=== PATIENT | male | born 1960 | race Caucasian/White ===

== ENCOUNTER 2017-02-26 19:20 | Inpatient (IN) | payer MEDICAID ==
[~2017-02-26] VITALS: Ht 167.6 cm; Wt 90.0 kg
[~2017-02-26 19:20] MED LIST: BUSP10TA11 PO; CITA40TA22 PO; IBUP-1985 PO; METO25TA6 PO; QUET50TA PO; QUET50TA15 PO; ROSU5TAB PO; TRAZ150T78 PO
[2017-02-26] MEDS ORDERED: mupirocin 2% ointment 22GM TP STA (19:49)
[2017-02-26] MEDS ORDERED: LORazepam 2 mg/ml vial IV ONE ×2 (20:45→22:55)
[2017-02-26] MEDS ORDERED: normal saline 1000ML IV soln IVB ONE ×2 (20:45→22:55)
[2017-02-26 20:48] LABS: BASOPHILS % (AUTO) 0.2 % (0-1); EOSINOPHILS % (AUTO) 0.1 % (0-6); HEMATOCRIT 42.8 % (42.0-52.0); HEMOGLOBIN 14.5 g/dl (14.0-17.9); LYMPHOCYTES # (AUTO) 1.9 X10'3 (1.1-4.8); LYMPHOCYTES % (AUTO) 24.7 % (21-51); MEAN CORPUSCULAR HEMOGLOBIN 31.6 PG (27.0-31.0); MEAN CORPUSCULAR HGB CONC 33.8 % (33.0-36.5); MEAN CORPUSCULAR VOLUME 93.6 FL (78-98); MEAN PLATELET VOLUME 8.1 FL (7.4-10.4); MONOCYTES % (AUTO) 0.4 % (2-12); NEUTROPHILS # (AUTO) 5.8 X10'3 (1.8-7.7); NEUTROPHILS % (AUTO) 74.6 % (42-75); PLATELET COUNT 221 X10'3 (140-440); RED BLOOD COUNT 4.57 X10'6 (4.70-6.10); RED CELL DISTRIBUTION WIDTH 13.3 % (11.5-14.5); WHITE BLOOD COUNT 7.7 X10'3 (4.5-11.0)
[2017-02-26 21:03] LABS: ALANINE AMINOTRANSFERASE 37 U/L (12-78); ALBUMIN 4.2 G/DL (3.4-5.0); ALBUMIN/GLOBULIN RATIO 1.2 (1.1-1.5); ALKALINE PHOSPHATASE 77 IU/L (46-116); ANION GAP 13 (8-16); ASPARTATE AMINO TRANSFERASE 18 U/L (10-37); BILIRUBIN,TOTAL 0.3 MG/DL (0.1-1.0); BLOOD UREA NITROGEN 29 MG/DL (7-18); BUN/CREATININE RATIO 28.2 (5.4-32.0); CALCIUM 9.4 MG/DL (8.5-10.1); CHLORIDE 106 MMOL/L (99-107); CREATININE 1.03 MG/DL (0.60-1.10); ETHANOL < 0.010 GM/DL (0.0-0.010); GLUCOSE 150 MG/DL (70-104); POTASSIUM 3.9 MMOL/L (3.5-5.1); SODIUM 147 MMOL/L (135-145); TOTAL CARBON DIOXIDE 27.8 MMOL/L (24-32); TOTAL PROTEIN 7.6 G/DL (6.4-8.2); eGFR 75 ML/MIN
[2017-02-26 22:05] LABS: URINE AMPHETAMINE SCREEN NEGATIVE (Neg); URINE BARBITUATE SCREEN NEGATIVE (Neg); URINE BENZODIAZEPINES SCREEN NEGATIVE (Neg); URINE CANNABINOID SCREEN NEGATIVE (Neg); URINE COCAINE SCREEN NEGATIVE (Neg); URINE METHADONE SCREEN NEGATIVE (Neg); URINE OPIATE SCREEN NEGATIVE (Neg); URINE PHENCYCLIDINE SCREEN NEGATIVE (Neg)
[2017-02-26] MEDS ORDERED: LORazepam 2 mg/ml vial IV STA (22:20)
[2017-02-26] MEDS ORDERED: acetaminophen 325mg tablet PO STA (22:51)
[2017-02-26] MEDS ORDERED: iohexol 300mg/ml 100ml inj. ONE (23:00)
[2017-02-27] MEDS ORDERED: adenosine 3mg/ml 2ml vial IV ONE (00:15)
[2017-02-27] MEDS ORDERED: adenosine 3mg/ml 2ml vial IV STA (00:39)
[2017-02-27] MEDS ORDERED: diltiazem 5mg/ml 5ml inj. IV ONE ×2 (00:45→01:25)
[2017-02-27] MEDS ORDERED: CEPH250T PO (01:14)
[2017-02-27] MEDS ORDERED: SULF1TAB49 PO (01:14)
[2017-02-27] MEDS ORDERED: vancomycin/NS 1 GM ADD-VANTAGE 250 ML IV ONE (02:10)
[2017-02-27] MEDS ORDERED: acetaminophen 325mg tablet PO ONE (05:15)
[2017-02-27] MEDS ORDERED: normal saline 1000ML IV soln IVB ONE (05:15)
[2017-02-27] MEDS ORDERED: normal saline 1000ml 1,000 ML IV SCH ×2 (05:18→10:05)
[2017-02-27] MEDS ORDERED: diphenhydrAMINE 50 mg/ml inj IV PRN (05:20)
[2017-02-27] MEDS ORDERED: ondansetron/PF 4mg/2ml inj IV PRN (05:20)
[2017-02-27 06:00] LABS: CLARITY,URINE Clear (Clear); COLOR,URINE Yellow (Yellow); GLUCOSE, URINE Negative (Neg); KETONES,URINE Negative (Neg); LEUKOCYTE ESTERASE ,URINE Small (Neg); NITRITES, URINE Negative (Neg); OCCULT BLOOD,URINE Negative (Neg); PH,URINE 5.5 (4.8-8.0); PROTEIN,URINE Negative (Neg); UA COLLECTION TYPE CLN CATCH MIDSTREAM
[2017-02-27 06:09] LABS: BACTERIA,URINE NONE SEEN /HPF (Neg); MUCUS STRANDS NONE SEEN /LPF (Neg); RBC,URINE NONE SEEN /HPF (0-2); SQUAMOUS EPITHELIAL CELL,UR NONE SEEN /LPF (FEW)
[2017-02-27] MEDS: busPIRone 15mg tablet PO SCH (08:17)
[2017-02-27] MEDS: citalopram 20mg tablet PO SCH (08:17)
[2017-02-27] MEDS ORDERED: vancomycin/NS 1 GM ADD-VANTAGE 250 ML IV SCH (08:35)
[2017-02-27] MEDS ORDERED: normal saline 1000ml 1,000 ML IV ONE (10:05)
[2017-02-27 11:37] VITALS: BP 100/52
[2017-02-27] MEDS: acetaminophen 325mg tablet PO PRN ×2 (11:47→21:01)
[2017-02-27] MEDS ORDERED: cefTRIAXone 1g/NS 100ml IVPB 100 ML IV SCH (12:40)
[2017-02-27 13:00] VITALS: BP 105/57
[2017-02-27 13:06] LABS: BASOPHILS % (AUTO) 0.1 % (0-1); EOSINOPHILS # (AUTO) 0.2 X10'3 (0-0.9); HEMATOCRIT 37.4 % (42.0-52.0); HEMOGLOBIN 12.7 g/dl (14.0-17.9); LYMPHOCYTES # (AUTO) 0.8 X10'3 (1.1-4.8); LYMPHOCYTES % (AUTO) 4.4 % (21-51); MEAN CORPUSCULAR HEMOGLOBIN 31.2 PG (27.0-31.0); MEAN CORPUSCULAR VOLUME 91.8 FL (78-98); MONOCYTES # (AUTO) 0.5 X10'3 (0-0.9); MONOCYTES % (AUTO) 2.7 % (2-12); NEUTROPHILS # (AUTO) 15.5 X10'3 (1.8-7.7); NEUTROPHILS % (AUTO) 91.8 % (42-75); PLATELET COUNT 187 X10'3 (140-440); RED BLOOD COUNT 4.07 X10'6 (4.70-6.10); RED CELL DISTRIBUTION WIDTH 13.1 % (11.5-14.5); WHITE BLOOD COUNT 16.9 X10'3 (4.5-11.0)
[2017-02-27 14:29] LABS: PLATELET ESTIMATE NORMAL; TOTAL CELLS COUNTED 100
[2017-02-27 15:00] VITALS: BP 99/42
[2017-02-27] MEDS: vancomycin inj 1,250 MG in normal saline 250ml IV soln 250 ML IV SCH (15:26)
[2017-02-27] MEDS: levoFLOXACIN-Levaquin 750MG/D5 150 ML IV SCH (18:36)
[2017-02-27] MEDS: sodium chloride 0.45% 1,000 ML IV SCH ×2 (18:36→21:07)
[2017-02-27 19:00] VITALS: BP 107/56
[2017-02-27] MEDS: traZODone 50mg tablet PO SCH (21:00)
[2017-02-27] MEDS ORDERED: QUETIAPINE 50 MG TAB.SR.24H PO SCH (21:00)
[2017-02-27] MEDS: QUEtiapine 25mg tablet PO SCH (21:01)
[2017-02-27 22:00] VITALS: BP 118/49
[2017-02-28 02:00] VITALS: BP 102/63
[2017-02-28] MEDS: vancomycin inj 1,250 MG in normal saline 250ml IV soln 250 ML IV SCH ×2 (02:52→14:25)
[2017-02-28] MEDS: sodium chloride 0.45% 1,000 ML IV SCH ×2 (02:52→14:25)
[2017-02-28 06:00] VITALS: BP 114/65
[2017-02-28 06:45] LABS: BASOPHILS % (AUTO) 0.3 % (0-1); EOSINOPHILS # (AUTO) 0.5 X10'3 (0-0.9); HEMATOCRIT 32.7 % (42.0-52.0); HEMOGLOBIN 11.3 g/dl (14.0-17.9); LYMPHOCYTES # (AUTO) 1.2 X10'3 (1.1-4.8); LYMPHOCYTES % (AUTO) 12.7 % (21-51); MEAN CORPUSCULAR HEMOGLOBIN 31.7 PG (27.0-31.0); MEAN CORPUSCULAR HGB CONC 34.5 % (33.0-36.5); MEAN CORPUSCULAR VOLUME 91.9 FL (78-98); MONOCYTES # (AUTO) 0.7 X10'3 (0-0.9); MONOCYTES % (AUTO) 7.5 % (2-12); NEUTROPHILS # (AUTO) 7.3 X10'3 (1.8-7.7); NEUTROPHILS % (AUTO) 74.5 % (42-75); PLATELET COUNT 129 X10'3 (140-440); RED BLOOD COUNT 3.56 X10'6 (4.70-6.10); RED CELL DISTRIBUTION WIDTH 13.3 % (11.5-14.5); WHITE BLOOD COUNT 9.8 X10'3 (4.5-11.0)
[2017-02-28] MEDS: acetaminophen 325mg tablet PO PRN ×3 (06:52→20:40)
[2017-02-28 07:08] LABS: ALBUMIN 2.9 G/DL (3.4-5.0); ANION GAP 7 (8-16); BLOOD UREA NITROGEN 13 MG/DL (7-18); BUN/CREATININE RATIO 14.6 (5.4-32.0); CALCIUM 7.8 MG/DL (8.5-10.1); CHLORIDE 107 MMOL/L (99-107); CREATININE 0.89 MG/DL (0.60-1.10); GLUCOSE 144 MG/DL (70-104); POTASSIUM 3.8 MMOL/L (3.5-5.1); SODIUM 139 MMOL/L (135-145); TOTAL CARBON DIOXIDE 24.6 MMOL/L (24-32); eGFR 89 ML/MIN
[2017-02-28] MEDS: citalopram 20mg tablet PO SCH (08:25)
[2017-02-28] MEDS: busPIRone 15mg tablet PO SCH (08:25)
[2017-02-28] MEDS: levoFLOXACIN-Levaquin 750MG/D5 150 ML IV SCH (08:27)
[2017-02-28 11:00] VITALS: BP 105/66
[2017-02-28 15:00] VITALS: BP 129/67
[2017-02-28] MEDS: acyclovir inj 1,000 MG in normal saline 250ml IV soln 230 ML IV SCH (16:27)
[2017-02-28 19:00] VITALS: BP 129/68
[2017-02-28] MEDS: traZODone 50mg tablet PO SCH (20:40)
[2017-02-28] MEDS: QUEtiapine 25mg tablet PO SCH (20:40)
[2017-02-28 23:00] VITALS: BP 111/67
[2017-03-01] MEDS ORDERED: VANCOMYCIN LEVEL IV ONE (02:30)
[2017-03-01] MEDS: vancomycin inj 1,250 MG in normal saline 250ml IV soln 250 ML IV SCH ×3 (03:12→22:55)
[2017-03-01] MEDS: sodium chloride 0.45% 1,000 ML IV SCH ×4 (03:17→21:28)
[2017-03-01 03:31] LABS: BASOPHILS % (AUTO) 0.3 % (0-1); EOSINOPHILS # (AUTO) 0.5 X10'3 (0-0.9); EOSINOPHILS % (AUTO) 7.9 % (0-6); HEMATOCRIT 33.7 % (42.0-52.0); HEMOGLOBIN 11.4 g/dl (14.0-17.9); LYMPHOCYTES # (AUTO) 2.3 X10'3 (1.1-4.8); LYMPHOCYTES % (AUTO) 36.6 % (21-51); MEAN CORPUSCULAR HEMOGLOBIN 31.3 PG (27.0-31.0); MEAN CORPUSCULAR HGB CONC 33.9 % (33.0-36.5); MEAN CORPUSCULAR VOLUME 92.3 FL (78-98); MEAN PLATELET VOLUME 8.5 FL (7.4-10.4); MONOCYTES # (AUTO) 0.8 X10'3 (0-0.9); MONOCYTES % (AUTO) 12.6 % (2-12); NEUTROPHILS # (AUTO) 2.6 X10'3 (1.8-7.7); NEUTROPHILS % (AUTO) 42.6 % (42-75); PLATELET COUNT 136 X10'3 (140-440); RED BLOOD COUNT 3.65 X10'6 (4.70-6.10); RED CELL DISTRIBUTION WIDTH 13.1 % (11.5-14.5); WHITE BLOOD COUNT 6.2 X10'3 (4.5-11.0)
[2017-03-01 03:46] LABS: ANION GAP 7 (8-16); BLOOD UREA NITROGEN 9 MG/DL (7-18); BUN/CREATININE RATIO 11.7 (5.4-32.0); CALCIUM 8.5 MG/DL (8.5-10.1); CHLORIDE 109 MMOL/L (99-107); CREATININE 0.77 MG/DL (0.60-1.10); GLUCOSE 192 MG/DL (70-104); POTASSIUM 3.7 MMOL/L (3.5-5.1); SODIUM 143 MMOL/L (135-145); TOTAL CARBON DIOXIDE 26.7 MMOL/L (24-32); eGFR > 90 ML/MIN
[2017-03-01 06:30] VITALS: BP 132/79
[2017-03-01] MEDS: citalopram 20mg tablet PO SCH (07:01)
[2017-03-01] MEDS: busPIRone 15mg tablet PO SCH (07:01)
[2017-03-01] MEDS: acetaminophen 325mg tablet PO PRN ×2 (07:01→19:57)
[2017-03-01] MEDS: acyclovir inj 1,000 MG in normal saline 250ml IV soln 230 ML IV SCH ×4 (07:01→16:10)
[2017-03-01] MEDS: levoFLOXACIN-Levaquin 750MG/D5 150 ML IV SCH (07:01)
[2017-03-01] MEDS ORDERED: vancomycin inj 1,250 MG in normal saline 250ml IV soln 250 ML IV SCH (12:58)
[2017-03-01 12:59] VITALS: BP 129/87
[2017-03-01 16:34] VITALS: BP 139/84
[2017-03-01 18:00] VITALS: BP 130/77
[2017-03-01] MEDS: traZODone 50mg tablet PO SCH (21:20)
[2017-03-01] MEDS: QUEtiapine 25mg tablet PO SCH (21:20)
[2017-03-01 22:00] VITALS: BP 128/79
[2017-03-02] MEDS: acyclovir inj 1,000 MG in normal saline 250ml IV soln 230 ML IV SCH ×2 (00:50→07:01)
[2017-03-02 02:00] VITALS: BP 133/73
[2017-03-02 05:54] LABS: BASOPHILS % (AUTO) 0.1 % (0-1); EOSINOPHILS # (AUTO) 0.6 X10'3 (0-0.9); EOSINOPHILS % (AUTO) 7.5 % (0-6); HEMATOCRIT 37.3 % (42.0-52.0); HEMOGLOBIN 12.6 g/dl (14.0-17.9); LYMPHOCYTES # (AUTO) 3.3 X10'3 (1.1-4.8); LYMPHOCYTES % (AUTO) 45.5 % (21-51); MEAN CORPUSCULAR HEMOGLOBIN 31.2 PG (27.0-31.0); MEAN CORPUSCULAR HGB CONC 33.7 % (33.0-36.5); MEAN CORPUSCULAR VOLUME 92.8 FL (78-98); MEAN PLATELET VOLUME 9.2 FL (7.4-10.4); MONOCYTES # (AUTO) 0.6 X10'3 (0-0.9); MONOCYTES % (AUTO) 8.1 % (2-12); NEUTROPHILS # (AUTO) 2.9 X10'3 (1.8-7.7); NEUTROPHILS % (AUTO) 38.8 % (42-75); PLATELET COUNT 167 X10'3 (140-440); RED BLOOD COUNT 4.02 X10'6 (4.70-6.10); RED CELL DISTRIBUTION WIDTH 13.2 % (11.5-14.5); WHITE BLOOD COUNT 7.3 X10'3 (4.5-11.0)
[2017-03-02 06:08] LABS: ANION GAP 6 (8-16); BLOOD UREA NITROGEN 11 MG/DL (7-18); BUN/CREATININE RATIO 16.4 (5.4-32.0); CHLORIDE 107 MMOL/L (99-107); CREATININE 0.67 MG/DL (0.60-1.10); GLUCOSE 138 MG/DL (70-104); POTASSIUM 4.1 MMOL/L (3.5-5.1); SODIUM 139 MMOL/L (135-145); TOTAL CARBON DIOXIDE 26.3 MMOL/L (24-32); eGFR > 90 ML/MIN
[2017-03-02 06:09] LABS: ALBUMIN 3.3 G/DL (3.4-5.0)
[2017-03-02 06:30] VITALS: BP 140/79
[2017-03-02] MEDS: vancomycin inj 1,250 MG in normal saline 250ml IV soln 250 ML IV SCH (07:01)
[2017-03-02] MEDS: busPIRone 15mg tablet PO SCH (07:02)
[2017-03-02] MEDS: sodium chloride 0.45% 1,000 ML IV SCH (07:02)
[2017-03-02] MEDS: citalopram 20mg tablet PO SCH (07:02)
[2017-03-02] MEDS ORDERED: LACTOBACILLUS RHAMNOSUS GG 15 billion unit sprinkle caps PO SCH (07:30)
[2017-03-02] MEDS ORDERED: ACYC200C PO (08:48)
[2017-03-02] MEDS ORDERED: NEOM28.44 TP (08:48)
[2017-03-02] MEDS ORDERED: VANCOMYCIN LEVEL IV ONE (14:30)
== END 2017-03-02 10:00 | disposition home or self-care (01) | DRG 720 ==
LOC: ER 19:21 → ED HOLD 02-27 05:18 → MED 3N 02-27 11:20 → PCU 3S 02-27 13:26
PROVIDERS: ADMIT Internal Medicine; ATTEND Internal Medicine
PROC: BN251ZZ Computerized Tomography (CT Scan) of Facial Bones using Low Osmolar Contrast (ICD-10-PCS; principal; 2017-02-26)
DX: A41.9 Sepsis, unspecified organism (principal); B02.9 Zoster without complications; I10 Essential (primary) hypertension; E78.5 Hyperlipidemia, unspecified; T37.0X5A Adverse effect of sulfonamides, initial encounter; J34.89 Other specified disorders of nose and nasal sinuses; L03.211 Cellulitis of face; Z96.653 Presence of artificial knee joint, bilateral; T36.1X5A Adverse effect of cephalosporins and other beta-lactam antibiotics, initial encounter; E86.0 Dehydration; F10.20 Alcohol dependence, uncomplicated; F32.9 Major depressive disorder, single episode, unspecified; Z59.0 Homelessness; Z82.0 Family history of epilepsy and other diseases of the nervous system; Z86.14 Personal history of Methicillin resistant Staphylococcus aureus infection; Z87.891 Personal history of nicotine dependence; Z88.1 Allergy status to other antibiotic agents; Y92.89 Other specified places as the place of occurrence of the external cause
CPT/HCPCS: 36415; 70487; 71045; 80048; 80053; 80202; 80305; 80320; 81001; 83605; 84145; 84443; 85025; 85651; 87040; 87070; 87077; 87186; 93005; 96361; 96365; 96366; 96375; 96376; 99285; J0133; J0153; J1200; J1956; J2060; J3370; J3490; J7030; Q9967

== ENCOUNTER 2017-10-21 03:16 | Emergency (ER) | payer MEDICAID, OTHER ==
[~2017-10-21] VITALS: Ht 167.6 cm; Wt 79.5 kg
[~2017-10-21 03:16] MED LIST changes: -IBUP-1985 PO; -METO25TA6 PO; +NEOM28.44 TP; -QUET50TA15 PO
[2017-10-21] MEDS ORDERED: LORazepam 1 MG tablet PO ONE (03:40)
[2017-10-21] MEDS ORDERED: ketorolac trometh inj. 60 MG/2 ML VIAL IM ONE (03:45)
[2017-10-21] MEDS ORDERED: HYDROcodone/acetaminophen 5mg/325mg tablet PO ONE (03:45)
[2017-10-21] MEDS ORDERED: LIDOcaine 5% patch TP ONE (03:45)
[2017-10-21] MEDS ORDERED: LORA1TAB PO (04:39)
[2017-10-21] MEDS ORDERED: LIDO700A32 TOP (04:43)
[2017-10-21] MEDS ORDERED: IBUP-1986 PO (04:43)
[2017-10-21 04:54] VITALS: BP 146/94
== END 2017-10-21 04:56 | disposition home or self-care (01) ==
LOC: ER 03:17
DX: F41.9 Anxiety disorder, unspecified (principal); S20.211A Contusion of right front wall of thorax, initial encounter; I10 Essential (primary) hypertension; F32.9 Major depressive disorder, single episode, unspecified; F10.10 Alcohol abuse, uncomplicated; Z88.1 Allergy status to other antibiotic agents; Z88.2 Allergy status to sulfonamides; W18.30XA Fall on same level, unspecified, initial encounter; Y93.89 Activity, other specified; Y92.89 Other specified places as the place of occurrence of the external cause; Y99.8 Other external cause status
CPT/HCPCS: 71045; 93005; 96372; 99284; J1885

== ENCOUNTER 2019-06-12 11:29 | Emergency (ER) | payer MEDICAID ==
[~2019-06-12] VITALS: Ht 167.6 cm; Wt 81.8 kg
[~2019-06-12 11:29] MED LIST changes: +ACET-2119 PO; +LIDO700A32 TOP; +METF500T20 PO; -NEOM28.44 TP; -ROSU5TAB PO
[2019-06-12 12:37] LABS: BASOPHILS # (AUTO) 0.1 X10'3 (0-0.2); BASOPHILS % (AUTO) 0.8 % (0-1); EOSINOPHILS # (AUTO) 0.1 X10'3 (0-0.9); EOSINOPHILS % (AUTO) 0.9 % (0-6); HEMATOCRIT 45.4 % (42.0-52.0); HEMOGLOBIN 15.2 g/dl (14.0-17.9); LYMPHOCYTES # (AUTO) 5.2 X10'3 (1.1-4.8); MEAN CORPUSCULAR HEMOGLOBIN 31.5 PG (27.0-31.0); MEAN CORPUSCULAR HGB CONC 33.5 g/dL (33.0-36.5); MEAN CORPUSCULAR VOLUME 93.9 FL (78-98); MEAN PLATELET VOLUME 8.5 FL (7.4-10.4); MONOCYTES # (AUTO) 0.6 X10'3 (0-0.9); MONOCYTES % (AUTO) 6.4 % (2-12); NEUTROPHILS # (AUTO) 2.9 X10'3 (1.8-7.7); NEUTROPHILS % (AUTO) 32.9 % (42-75); PLATELET COUNT 230 X10'3 (140-440); RED BLOOD COUNT 4.84 X10'6 (4.70-6.10); RED CELL DISTRIBUTION WIDTH 12.8 % (11.5-14.5); WHITE BLOOD COUNT 8.9 X10'3 (4.5-11.0)
[2019-06-12 12:50] LABS: PARTIAL THROMBOPLASTIN TIME 28 SECONDS (22-32)
[2019-06-12 12:55] LABS: ALANINE AMINOTRANSFERASE 29 U/L (12-78); ALBUMIN/GLOBULIN RATIO 1.3 (1.1-1.5); ALKALINE PHOSPHATASE 54 IU/L (46-116); ANION GAP 9 (8-16); ASPARTATE AMINO TRANSFERASE 17 U/L (10-37); BILIRUBIN,TOTAL 0.3 MG/DL (0.1-1.0); BLOOD UREA NITROGEN 19 MG/DL (7-18); BUN/CREATININE RATIO 20.2 (5.4-32.0); CALCIUM 8.7 MG/DL (8.5-10.1); CHLORIDE 110 MMOL/L (99-107); CREATININE 0.94 MG/DL (0.60-1.10); GLUCOSE 142 MG/DL (70-104); POTASSIUM 4.2 MMOL/L (3.5-5.1); SODIUM 146 MMOL/L (135-145); TOTAL CARBON DIOXIDE 26.9 MMOL/L (24-32); TOTAL PROTEIN 7.1 G/DL (6.4-8.2); eGFR 83 ML/MIN
[2019-06-12 13:03] LABS: ETHANOL 0.389 GM/DL (0.0-0.010)
--- NOTE | 2019-06-12 13:08 | NUR ---
pt sleeping will ask for UA once awake
[2019-06-12 13:48] LABS: PLATELET ESTIMATE NORMAL; TOTAL CELLS COUNTED 100
[2019-06-12 13:49] LABS: GIANT PLATELET FEW; LARGE PLATELETS FEW
[2019-06-12 13:52] LABS: POLYCHROMASIA FEW
[2019-06-12 13:53] LABS: TOXIC VACUOLATION 1+
[2019-06-12 13:54] LABS: SMUDGE CELLS FEW
--- NOTE | 2019-06-12 14:45 | NUR ---
PT WOKE UP AND GAVE UA, PT SAID HE WANTED TO LEAVE, I INFORMED PT HE NEEDED TO WAIT UNTIL HE WAS NOT INTOXICATED, BUT IF HE WOULD LIKE TO LEAVE HE COULD BUT [facility] WOULD BE NOTIFIED IF HE DID LEAVE. PT SAID HE WOULD STAY AND JUST GO BACK TO SLEEP. WILL CONTINUE TO MONITOR
[2019-06-12 14:59] LABS: CLARITY,URINE CLEAR (Clear); COLOR,URINE STRAW (Yellow); GLUCOSE, URINE NEGATIVE (Neg); KETONES,URINE NEGATIVE (Neg); LEUKOCYTE ESTERASE ,URINE NEGATIVE (Neg); NITRITES, URINE NEGATIVE (Neg); OCCULT BLOOD,URINE NEGATIVE (Neg); PROTEIN,URINE NEGATIVE (Neg); UROBILINOGEN,URINE 0.2 E.U/dL (0.2-1.0)
[2019-06-12 15:06] LABS: URINE AMPHETAMINE SCREEN NEGATIVE (Neg); URINE BARBITUATE SCREEN NEGATIVE (Neg); URINE BENZODIAZEPINES SCREEN NEGATIVE (Neg); URINE CANNABINOID SCREEN NEGATIVE (Neg); URINE COCAINE SCREEN NEGATIVE (Neg); URINE METHADONE SCREEN NEGATIVE (Neg); URINE OPIATE SCREEN NEGATIVE (Neg); URINE PHENCYCLIDINE SCREEN NEGATIVE (Neg)
[2019-06-12 15:14] LABS: UA COLLECTION TYPE URINAL
[2019-06-12 17:17] VITALS: BP 109/77
== END 2019-06-12 17:19 | disposition home or self-care (01) ==
LOC: ER 11:30
DX: F10.920 Alcohol use, unspecified with intoxication, uncomplicated (principal); I10 Essential (primary) hypertension; E11.9 Type 2 diabetes mellitus without complications; F41.9 Anxiety disorder, unspecified; F32.9 Major depressive disorder, single episode, unspecified; Z59.0 Homelessness; Z98.890 Other specified postprocedural states; Z88.1 Allergy status to other antibiotic agents; Z79.899 Other long term (current) drug therapy; Y90.9 Presence of alcohol in blood, level not specified
CPT/HCPCS: 36415; 70450; 71045; 80053; 80305; 80320; 81003; 85025; 85610; 85730; 93005; 99285

== ENCOUNTER 2020-07-19 08:11 | Emergency (ER) | payer MEDICAID ==
[~2020-07-19] VITALS: Ht 167.6 cm; Wt 88.6 kg
[~2020-07-19 08:11] MED LIST changes: +METF-900 PO; -METF500T20 PO
--- NOTE | 2020-07-19 08:56 | NUR ---
film technician at bedside.
[2020-07-19 09:07] LABS: BASOPHILS # (AUTO) 0.1 X10'3 (0-0.2); BASOPHILS % (AUTO) 0.8 % (0-1); EOSINOPHILS # (AUTO) 0.1 X10'3 (0-0.9); HEMATOCRIT 42.5 % (42.0-52.0); HEMOGLOBIN 14.5 g/dl (14.0-17.9); LYMPHOCYTES % (AUTO) 36.8 % (21-51); MEAN CORPUSCULAR HEMOGLOBIN 32.1 PG (27.0-31.0); MEAN CORPUSCULAR HGB CONC 34.1 g/dL (33.0-36.5); MEAN CORPUSCULAR VOLUME 94.1 FL (78-98); MEAN PLATELET VOLUME 8.6 FL (7.4-10.4); MONOCYTES # (AUTO) 0.7 X10'3 (0-0.9); MONOCYTES % (AUTO) 8.6 % (2-12); NEUTROPHILS # (AUTO) 4.3 X10'3 (1.8-7.7); NEUTROPHILS % (AUTO) 52.8 % (42-75); PLATELET COUNT 189 X10'3 (140-440); RED BLOOD COUNT 4.52 X10'6 (4.70-6.10); RED CELL DISTRIBUTION WIDTH 14.1 % (11.5-14.5); WHITE BLOOD COUNT 8.2 X10'3 (4.5-11.0)
[2020-07-19 09:25] LABS: ALANINE AMINOTRANSFERASE 69 U/L (12-78); ALBUMIN 3.7 G/DL (3.4-5.0); ALBUMIN/GLOBULIN RATIO 1.2 (1.1-1.5); ALKALINE PHOSPHATASE 46 IU/L (46-116); ANION GAP 12 (8-16); ASPARTATE AMINO TRANSFERASE 39 U/L (10-37); BILIRUBIN,TOTAL 0.6 MG/DL (0.1-1.0); BLOOD UREA NITROGEN 14 MG/DL (7-18); BUN/CREATININE RATIO 17.7 (5.4-32.0); CALCIUM 9.2 MG/DL (8.5-10.1); CHLORIDE 104 MMOL/L (99-107); CREATININE 0.79 MG/DL (0.60-1.10); GLUCOSE 165 MG/DL (70-104); POTASSIUM 3.7 MMOL/L (3.5-5.1); SODIUM 139 MMOL/L (135-145); TOTAL CARBON DIOXIDE 22.9 MMOL/L (24-32); TOTAL PROTEIN 6.8 G/DL (6.4-8.2); eGFR > 90 ML/MIN
[2020-07-19] MEDS ORDERED: dexamethasone sod phosphate 10mg/ml inj IV STA (09:42)
[2020-07-19] MEDS ORDERED: diazepam inj 5 MG/ML inj. IV ONE (09:45)
[2020-07-19] MEDS ORDERED: normal saline 1000ML IV soln IVB ONE (09:45)
[2020-07-19] MEDS ORDERED: meclizine 12.5mg tablet PO ONE (09:45)
[2020-07-19] MEDS ORDERED: ondansetron/PF 4mg/2ml inj IV ONE (09:45)
[2020-07-19] MEDS ORDERED: cloNIDine 0.1 mg tablet PO ONE (10:05)
[2020-07-19] MEDS ORDERED: MECL-159 PO (10:45)
[2020-07-19 11:10] VITALS: BP 147/89
== END 2020-07-19 11:14 | disposition home or self-care (01) ==
LOC: ER 08:11
DX: R42 Dizziness and giddiness (principal); I10 Essential (primary) hypertension; R11.0 Nausea; E11.9 Type 2 diabetes mellitus without complications; F41.9 Anxiety disorder, unspecified; F32.9 Major depressive disorder, single episode, unspecified; Z98.890 Other specified postprocedural states; Z72.89 Other problems related to lifestyle; Z59.0 Homelessness; Z88.1 Allergy status to other antibiotic agents; Z88.8 Allergy status to other drugs, medicaments and biological substances; Z79.899 Other long term (current) drug therapy
CPT/HCPCS: 36415; 80053; 83880; 84484; 85025; 93005; 96374; 96375; 99285; J1100; J2405; J3360; J7030; J8597

== ENCOUNTER 2020-08-14 14:00 | Emergency (ER) | payer MEDICAID ==
[~2020-08-14] VITALS: Ht 167.6 cm; Wt 92.7 kg
[~2020-08-14 14:00] MED LIST changes: +MECL-159 PO
[2020-08-14 14:20] VITALS: BP 178/102
== END 2020-08-14 22:41 | disposition left against medical advice (07) ==
LOC: ER 14:01
DX: S61.412A Laceration without foreign body of left hand, initial encounter (principal); Z53.21 Procedure and treatment not carried out due to patient leaving prior to being seen by health care provider; X58.XXXA Exposure to other specified factors, initial encounter; Y93.9 Activity, unspecified; Y92.9 Unspecified place or not applicable; Y99.9 Unspecified external cause status

== ENCOUNTER 2020-08-15 09:20 | Emergency (ER) | payer MEDICAID ==
[~2020-08-15] VITALS: Ht 167.6 cm; Wt 88.7 kg
[2020-08-15 09:28] VITALS: BP 151/98
== END 2020-08-15 11:16 | disposition left against medical advice (07) ==
LOC: ER 09:21
DX: S61.412A Laceration without foreign body of left hand, initial encounter (principal); Z53.21 Procedure and treatment not carried out due to patient leaving prior to being seen by health care provider; X58.XXXA Exposure to other specified factors, initial encounter; Y93.9 Activity, unspecified; Y92.9 Unspecified place or not applicable; Y99.9 Unspecified external cause status

== ENCOUNTER 2020-12-25 07:05 | Emergency (ER) | payer MEDICAID ==
[~2020-12-25] VITALS: Ht 167.6 cm; Wt 86.4 kg
[2020-12-25 07:41] LABS: CLARITY,URINE CLEAR (Clear); COLOR,URINE YELLOW (Yellow); GLUCOSE, URINE NEGATIVE (Neg); KETONES,URINE NEGATIVE (Neg); LEUKOCYTE ESTERASE ,URINE NEGATIVE (Neg); NITRITES, URINE NEGATIVE (Neg); OCCULT BLOOD,URINE NEGATIVE (Neg); PROTEIN,URINE NEGATIVE (Neg); UA COLLECTION TYPE CLN CATCH MIDSTREAM; UROBILINOGEN,URINE 0.2 E.U/dL (0.2-1.0)
[2020-12-25] MEDS ORDERED: acetaminophen 325mg tablet PO ONE (08:05)
[2020-12-25] MEDS ORDERED: ketorolac trometh inj. 60 MG/2 ML VIAL IM ONE (08:05)
[2020-12-25 09:20] LABS: BASOPHILS # (AUTO) 0.1 X10'3 (0-0.2); EOSINOPHILS # (AUTO) 0.1 X10'3 (0-0.9); EOSINOPHILS % (AUTO) 1.6 % (0-6); HEMATOCRIT 42.7 % (42.0-52.0); HEMOGLOBIN 14.6 g/dl (14.0-17.9); LYMPHOCYTES # (AUTO) 3.9 X10'3 (1.1-4.8); LYMPHOCYTES % (AUTO) 51.6 % (21-51); MEAN CORPUSCULAR HGB CONC 34.2 g/dL (33.0-36.5); MEAN CORPUSCULAR VOLUME 96.5 FL (78-98); MEAN PLATELET VOLUME 8.6 FL (7.4-10.4); MONOCYTES # (AUTO) 0.5 X10'3 (0-0.9); NEUTROPHILS # (AUTO) 2.9 X10'3 (1.8-7.7); NEUTROPHILS % (AUTO) 38.8 % (42-75); PLATELET COUNT 217 X10'3 (140-440); RED BLOOD COUNT 4.43 X10'6 (4.70-6.10); RED CELL DISTRIBUTION WIDTH 13.6 % (11.5-14.5); WHITE BLOOD COUNT 7.5 X10'3 (4.5-11.0)
[2020-12-25 09:37] LABS: ALANINE AMINOTRANSFERASE 63 U/L (12-78); ALBUMIN 3.8 G/DL (3.4-5.0); ALKALINE PHOSPHATASE 48 IU/L (46-116); ANION GAP 11 (8-16); ASPARTATE AMINO TRANSFERASE 23 U/L (10-37); BILIRUBIN,TOTAL 0.2 MG/DL (0.1-1.0); BLOOD UREA NITROGEN 10 MG/DL (7-18); BUN/CREATININE RATIO 12.8 (5.4-32.0); CALCIUM 8.7 MG/DL (8.5-10.1); CHLORIDE 106 MMOL/L (99-107); CREATININE 0.78 MG/DL (0.60-1.10); GLUCOSE 198 MG/DL (70-104); LIPASE 152 U/L (73-393); POTASSIUM 4.4 MMOL/L (3.5-5.1); SODIUM 144 MMOL/L (135-145); TOTAL CARBON DIOXIDE 26.7 MMOL/L (24-32); TOTAL PROTEIN 7.5 G/DL (6.4-8.2); eGFR > 90 ML/MIN
[2020-12-25 09:58] VITALS: BP 128/105
[2020-12-25] MEDS ORDERED: FAMC500T23 PO (10:06)
== END 2020-12-25 10:12 | disposition home or self-care (01) ==
LOC: ER 07:06
DX: R10.9 Unspecified abdominal pain (principal); E11.9 Type 2 diabetes mellitus without complications; I10 Essential (primary) hypertension; F32.9 Major depressive disorder, single episode, unspecified; F41.9 Anxiety disorder, unspecified; Z59.00 Homelessness unspecified; Z88.1 Allergy status to other antibiotic agents; Z88.2 Allergy status to sulfonamides; Z88.8 Allergy status to other drugs, medicaments and biological substances
CPT/HCPCS: 36415; 74176; 80053; 81003; 83690; 85025; 96372; 99284; J1885

== ENCOUNTER 2021-06-14 20:48 | Emergency (ER) | payer MEDICAID ==
[~2021-06-14 20:48] MED LIST changes: +FAMC500T23 PO
== END 2021-06-15 01:41 | disposition left against medical advice (07) ==
LOC: ER 20:48
DX: Z53.21 Procedure and treatment not carried out due to patient leaving prior to being seen by health care provider (principal)

== ENCOUNTER 2021-12-06 21:20 | Emergency (ER) | payer MEDICAID | END 2021-12-06 23:00 | disposition left against medical advice (07) | LOC: ER 21:21 | DX: R06.02 Shortness of breath (principal); Z53.21 Procedure and treatment not carried out due to patient leaving prior to being seen by health care provider ==

== ENCOUNTER 2024-06-05 16:26 | Emergency (ER) | payer MEDICAID ==
[~2024-06-05] VITALS: Ht 167.6 cm; Wt 73.0 kg
[~2024-06-05 16:26] MED LIST changes: -MECL-159 PO; +MECL-302 PO
[2024-06-05] MEDS ORDERED: CHLO25CA10 PO (17:13)
[2024-06-05 17:42] VITALS: BP 123/65; PULSE 96; RESP 15; TEMP 97.6; O2SAT 98
== END 2024-06-05 17:36 | disposition home or self-care (01) ==
LOC: ER 16:27
DX: F10.129 Alcohol abuse with intoxication, unspecified (principal); F41.9 Anxiety disorder, unspecified; F32.A Depression, unspecified; E11.9 Type 2 diabetes mellitus without complications; I10 Essential (primary) hypertension; Y90.9 Presence of alcohol in blood, level not specified; Z88.2 Allergy status to sulfonamides; Z88.1 Allergy status to other antibiotic agents; Z79.899 Other long term (current) drug therapy; Z59.00 Homelessness unspecified
CPT/HCPCS: 99283